=== PATIENT | male | born 1995 | race African-American/Black ===

== ENCOUNTER 2024-11-20 09:14 | Emergency (ER) | payer SELFPAY ==
[~2024-11-20] VITALS: Ht 177.8 cm; Wt 84.8 kg
[2024-11-20 09:15] VITALS: TEMP 98.5
[2024-11-20 10:10] LABS: CLARITY,URINE CLEAR (CLEAR); COLOR,URINE YELLOW (YELLOW)
[2024-11-20 10:11] LABS: BILIRUBIN,URINE NEGATIVE (NEGATIVE); GLUCOSE, URINE NEGATIVE (NEGATIVE); KETONES,URINE NEGATIVE (NEGATIVE); LEUKOCYTE ESTERASE ,URINE NEGATIVE (NEGATIVE); NITRITE,URINE NEGATIVE (NEGATIVE); PH,URINE 5.5 (5 - 7); PROTEIN,URINE DIPSTICK NEGATIVE (NEGATIVE); URINE UROBILINOGEN 0.2 mg/dL (0.2 - 1)
[2024-11-20 10:26] LABS: BACTERIA,URINE FEW /HPF; EPITHELIAL CELLS,URINE RARE /LPF; RBC,URINE 0-5 /HPF (0-5); WBC,URINE (MAN) 0-5 /HPF (0-5)
[2024-11-20] MEDS ORDERED: NAPROXEN250 MG PO (10:31)
[2024-11-20 10:34] VITALS: PULSE 62; RESP 14; O2SAT 100
== END 2024-11-20 10:30 | disposition home or self-care (01) ==
LOC: ER 09:19
DX: R30.0 Dysuria (principal); M54.50 Low back pain, unspecified
CPT/HCPCS: 81001; 87086; 99283